=== PATIENT | male | born 1970 | race Caucasian/White ===

== ENCOUNTER 2019-07-25 01:04 | Emergency (ER) | payer BC ==
[~2019-07-25] VITALS: Ht 180.3 cm; Wt 87.0 kg
[2019-07-25] MEDS ORDERED: TETANUS, DIPHTHERIA, PERTUSSIS VAC/PF 0.5ML (>7YR OLD) IM ONE (01:30)
[2019-07-25] MEDS ORDERED: BACITRACIN ZINC OINT UDPKT TOP ONE (01:30)
[2019-07-25] MEDS ORDERED: LIDOCAINE HCL/PF 1% 10 MG/ML 5ML VIAL IJ ONE (01:30)
[2019-07-25 02:05] VITALS: BP 121/75
== END 2019-07-25 02:09 | disposition home or self-care (01) ==
LOC: ER 01:04
DX: S61.210A Laceration without foreign body of right index finger without damage to nail, initial encounter (principal); F12.10 Cannabis abuse, uncomplicated; J45.909 Unspecified asthma, uncomplicated; W25.XXXA Contact with sharp glass, initial encounter; Y93.89 Activity, other specified; Y92.89 Other specified places as the place of occurrence of the external cause; Y99.8 Other external cause status
CPT/HCPCS: 12001; 90471; 90715; 99283; J3490

== ENCOUNTER 2021-04-16 20:11 | Emergency (ER) | payer BC ==
[~2021-04-16] VITALS: Ht 175.3 cm; Wt 68.0 kg
[2021-04-16] MEDS ORDERED: ACETAMINOPHEN WITH CODEINE 300/30MG TABLET PO ONE (21:15)
[2021-04-16] MEDS ORDERED: IBUP-2028 PO (21:52)
[2021-04-16] MEDS ORDERED: LIDOCAINE HCL/PF 1% 10 MG/ML 5ML VIAL INFIL ONE (22:00)
[2021-04-16] MEDS ORDERED: T3 PO (22:36)
[2021-04-16 23:00] VITALS: BP 127/75
== END 2021-04-16 23:07 | disposition home or self-care (01) ==
LOC: ER 20:11
DX: S61.212A Laceration without foreign body of right middle finger without damage to nail, initial encounter (principal); S61.214A Laceration without foreign body of right ring finger without damage to nail, initial encounter; W23.1XXA Caught, crushed, jammed, or pinched between stationary objects, initial encounter; Y93.89 Activity, other specified; Y92.89 Other specified places as the place of occurrence of the external cause
CPT/HCPCS: 73120; 99283; J3490

== ENCOUNTER 2023-10-09 03:14 | Emergency (ER) | payer BC ==
[~2023-10-09] VITALS: Ht 180.3 cm; Wt 82.0 kg
[~2023-10-09 03:14] MED LIST: IBUP-2028 PO; T3 PO
[2023-10-09 03:41] VITALS: O2SAT 99
[2023-10-09 04:24] LABS: BASOPHILS % 0.7 % (0.0-2.0); EOSINOPHILS % 5.7 % (0.0-5.0); HEMATOCRIT. 44.2 % (42.0-52.0); HEMOGLOBIN. 14.7 g/dL (14.0-18.0); LYMPHOCYTES % 41.5 % (20.0-50.0); MEAN CORPUSCULAR HEMOGLOBIN 31.9 pg (28.0-32.0); MEAN CORPUSCULAR HGB CONC 33.2 g/dL (31.0-37.0); MEAN CORPUSCULAR VOLUME 95.9 fL (80.0-94.0); MONOCYTES % 10.2 % (2.0-8.0); NEUTROPHILS % 41.9 % (40.0-76.0); PLATELET 311 x1000/uL (130-400); RED BLOOD CELL COUNT 4.61 mill/uL (4.7-6.1); RED CELL DISTRIBUTION WIDTH 13.9 % (11.6-14.6); WHITE BLOOD COUNT 8.3 x1000/uL (4.5-11.0)
[2023-10-09 04:43] LABS: ALANINE AMINOTRANSFERASE 39 IU/L (10-49); ALBUMIN 4.1 g/dL (3.2-4.8); ASPARTATE AMINOTRANSFERASE 38 IU/L (<34); BILIRUBIN TOTAL 0.5 mg/dL (0.1-1.0); CALCIUM 9.3 mg/dL (8.7-10.4); CARBON DIOXIDE 31 mEq/L (21-32); CHLORIDE 106 mEq/L (98-107); CREATININE 0.8 mg/dL (0.6-1.3); GLUCOSE 91 mg/dL (70-105); POTASSIUM 3.7 mEq/L (3.5-5.1); PROTEIN TOTAL 6.9 g/dL (6.0-8.3); SODIUM 143 mEq/L (136-145); UREA NITROGEN BLOOD 18 mg/dL (9-23)
[2023-10-09 04:53] LABS: PROTHROMBIN TIME 10.3 sec (9.6-11.0)
[2023-10-09 05:32] LABS: CLARITY URINE CLEAR (CLEAR); COLOR URINE DARK YELLOW (YELLOW); GLUCOSE URINE NEGATIVE (NEGATIVE); KETONES URINE TRACE (NEGATIVE); LEUKOCYTE ESTERASE URINE NEGATIVE (NEGATIVE); NITRITE URINE NEGATIVE (NEGATIVE); OCCULT BLOOD URINE NEGATIVE (NEGATIVE); PH URINE 5.5 (4.5-8.0); PROTEIN URINE NEGATIVE (NEGATIVE); SPECIFIC GRAVITY URINE 1.039 (1.005-1.030)
[2023-10-09] MEDS ORDERED: MAGNESIUM/ALUMINUM HYDROXIDE/SIMETHICONE 30ML UDC PO NR (06:30)
[2023-10-09] MEDS ORDERED: FAMOTIDINE 20MG TABLET PO NR (06:30)
[2023-10-09] MEDS ORDERED: ONDANSETRON 4MG ODT PO NR (06:30)
[2023-10-09 07:55] LABS: TROPONIN I HIGH SENSITIVITY < 4 ng/L (3.0-53)
[2023-10-09 09:17] VITALS: BP 118/74; PULSE 86; RESP 15; TEMP 98.3
== END 2023-10-09 09:19 | disposition home or self-care (01) ==
LOC: ER 03:14
DX: R10.13 Epigastric pain (principal)
CPT/HCPCS: 99284; 80053; 81003; 83690; 85025; 85610; 84484; 36415; 93005; Q0162